=== PATIENT | male | born 1960 | race Caucasian/White ===

== ENCOUNTER 2016-09-13 17:59 | Emergency (ER) | payer OTHER ==
[~2016-09-13] VITALS: Ht 180.3 cm; Wt 104.3 kg
--- NOTE | 2016-09-13 19:04 | ED NECK/BACK PAIN COMPLAINT ---
History of Present Illness General Chief Complaint: Low Back Pain/Injury Stated Complaint: S/P FALL BACK PAIN Source: patient Exam Limitations: no limitations Vital Signs & Intake/Output Vital Signs & Intake/Output Vital Signs Date Time Temp Pulse Resp B/P Pulse O2 O2 Flow FiO2 Ox Delivery Rate 09/13 2113 98.0 60 16 98/65 09/13 1946 Room Air 09/13 1817 98.9 77 20 131/76 97 Room Air Room Air Allergies Coded Allergies: No Known Allergies (09/13/16) Reconcile Medications Azithromycin (Zithromax) 250 MG TABLET 1 DP PO AD PNEUMONIA 2 the first day followed by 1 for days 2-5 Cyclobenzaprine HCl 10 MG TABLET 1 TAB PO TID PRN SPASM Ibuprofen 800 MG TABLET 1 TAB PO TID PRN PAIN Oxycodone HCl/Acetaminophen (Percocet 5-325 MG Tablet) 5 MG-325 MG TABLET 1 TAB PO Q4-6 PRN BREAKTHROUGH PAIN Triage Note: PT TO ED S/P SLIP AND FALL ON ICE IN DRIVEWAY "I WENT DOWN STRAIGHT ONTO MY BACK, THEN GOT UP WENT A FEW STEPS AND FELL AGAIN", PT STATING FALLS HAPPENED YESTERDAY, WAS OK, WENT TO WORK, AND GOT UP OUT OF MY CHAIR AND STARTED TO WALK AND "I FELT LIKE SOMEONE WAS STABBING ME IN THE BACK". Triage Nurses Notes Reviewed? yes Onset: Abrupt Duration: day(s): (1) Timing: multiple episodes today Quality/Severity: severe, dullness Location: T-spine, lumbar spine Radiation: none Context: fall/near fall Loss of Consciousness: no loss of consciousness Associated Symptoms: back pain HPI: This is a 56 year old male who presents to the ER for chief complaint of back pain s/p slip and fall x [address]. Patient reports pain this morning but went to work. When he went to stand up in the afternoon he had severe pain. He took 2 tylenol without relief. Past History Travel History Traveled to [place] past 21 day No Medical History Any Pertinent Medical History? see below for history Neurological: NONE EENT: NONE Cardiovascular: NONE Respiratory: NONE Gastrointestinal: GERD, peptic ulcer disease Hepatic: NONE Renal: NONE Musculoskeletal: NONE Psychiatric: NONE Endocrine: NONE Blood Disorders: NONE Cancer(s): NONE WOOD GLUER/Reproductive: NONE Surgical History Surgical History: non-contributory Psychosocial History What is your primary language Macanese Tobacco Use: Quit >30 days ago ETOH Use: occasional use Illicit Drug Use: PCP Family History Hx Contributory? No Review of Systems Review of Systems Constitutional: Reports: no symptoms. Eyes: Reports: no symptoms. Ears, Nose, Throat, Mouth: Reports: no symptoms. Respiratory: Denies: cough, short of breath. Cardiovascular: Denies: chest pain. Gastrointestinal/Abdominal: Reports: no symptoms. Musculoskeletal: Reports: back pain, muscle pain, muscle stiffness. Denies: neck pain. Skin: Reports: no symptoms. Neurological/Psychological: Denies: confusion, headache, numbness, tingling, weakness. All Other Systems: Reviewed and Negative Physical Exam Physical Exam General Appearance: well developed/nourished, alert, awake, mild distress Head: atraumatic Eyes: Bilateral: PERRL, EOMI. Ears, Nose, Throat, Mouth: hearing grossly normal Neck: normal inspection, supple, full range of motion Respiratory: normal breath sounds Cardiovascular: regular rate/rhythm Peripheral Pulses: 2+ radial (R), 2+ radial (L) Gastrointestinal: soft, non-tender Back: normal inspection, vertebral tenderness (LUMBOSACRAL SPINE), TENDER OVER BILATEARL POSTERIOR LOWER RIBS Extremities: normal range of motion Straight Leg Raising: Right: Negative. Left: Negative. Neurologic/Psych: awake, alert, oriented x 3, normal mood/affect Skin: intact, normal color, warm/dry Progress Differential Diagnosis: herniated disc, myofascial strain, sciatica, spinal cord inj, T/L spine injury Plan of Care: Orders Procedure Date/time Status CT CHEST WO IV CONTRAST 09/13 1908 Active SC morphine, PO valium ordered. (PINO CREWS,RENETTA) Diagnostic Imaging: Viewed by Me: CT Scan. Discussed w/RAD: CT Scan. Comments: PATIENT: JOAQUIN MANUEL PRESENT AGE: 56 PATIENT ACCOUNT NO: [id number] : 56 LOCATION: [facility] ORDERING PHYSICIAN: RENETTA PRINGLE MD SERVICE DATE: 09/13/16 EXAM TYPE: CAT - CT CHEST WO IV CONTRAST EXAMINATION: CT CHEST WITHOUT CONTRAST CLINICAL INFORMATION: Multiple falls COMPARISON: Chest x-ray 04/22/2014 TECHNIQUE: Multidetector volumetric CT imaging of the chest was done. Axial MIP volume rendering provided. Sagittal and coronal reformatted images were obtained. DLP: 395.17 mGy-cm. FINDINGS: LUNGS: Small subtle peripheral patchy infiltrate left lower lobe posterior, coronal image 83. Right lung is clear. Asymmetric elevation of left diaphragm above the right. MEDIASTINUM: The mediastinum is normal. Moderate hiatal hernia. PLEURA: There is no pleural effusion. No pleural mass or thickening. AXILLA: No lymphadenopathy. UPPER ABDOMEN: Unremarkable. OSSEOUS STRUCTURES: No rib fracture. No acute osseous change. There is degenerative spondylosis of the spine with multilevel endplate spurs. Disc height narrowing subchondral cystic changes at endplates of T5-T6. There is a 1.5 cm sclerotic lesion most likely bone island at the posterior right seventh rib. No bone destruction periosteal reaction or soft tissue lesion. IMPRESSION: 1. No rib fracture. No acute osseous of noted. 2. Subtle peripheral patchy infiltrate left lower lobe. DICTATED BY: KINGSTON MITTAL MD DATE/TIME DICTATED:09/13/161958 SLIP LASTER:ALEX DATE/TIME TRANSCRIBED:09/13/161958 CONFIDENTIAL, DO NOT COPY WITHOUT APPROPRIATE AUTHORIZATION. <Electronically signed in Other Vendor System> SIGNED BY: KINGSTON MITTAL MD 09/13/162106 PATIENT: JOAQUIN MANUEL PRESENT AGE: 56 PATIENT ACCOUNT NO: [id number] : 56 LOCATION: [facility] ORDERING PHYSICIAN: RENETTA PRINGLE MD SERVICE DATE: 09/13/16 EXAM TYPE: CAT - CT LUMB SPINE WO IV CONTRAST; CT THOR SPINE WO IV CONTRAST EXAMINATION: CT THORACIC SPINE WITHOUT CONTRAST CT LUMBAR SPINE WITHOUT CONTRAST CLINICAL INFORMATION: Back pain status post multiple falls. COMPARISON: Chest x-ray 04/22/2014. TECHNIQUE: Noncontrast axial CT scan of the thoracic and lumbar spine was obtained. Coronal and sagittal reformatted images were generated at the technologist's workstation. DLP: 1657.37 mGy-cm FINDINGS: CT THORACIC SPINE: Vertebral Bodies and Paraspinal Structures: There is anatomic alignment of the vertebral bodies. There is multilevel narrowing of intervertebral disc height which is most prominent at T5-T6; there are degenerative endplate contour changes with Schmorl's nodes in the adjacent endplates. Milder changes are seen at T10-T11 and T11-T12. There is mild loss of vertebral body height of T4, as well as loss of vertebral body height of the bodies of T8, T9 and T11. These are age indeterminate. There are multilevel marginal osteophytes. The paravertebral structures are unremarkable. There is atheromatous calcification of the aorta. There is a hiatal hernia. The superior retroperitoneal structures are unremarkable. There are linear opacities at the bases bilaterally consistent with atelectasis. There is no focal consolidation or pleural effusion. No pneumothoraces are demonstrated on the available images. There is an area of sclerosis in the right posteromedial 7th rib, most consistent with a bone island. Bone density elsewhere is unremarkable. SPINAL LEVELS: The central canal and neural foramina appear patent. No rib fractures are demonstrated. CT LUMBAR SPINE: Vertebral Bodies and Paraspinal Structures: There is anatomic alignment of the vertebral bodies. Vertebral body heights are maintained. Bone mineralization appears normal. The intervertebral discs have normal height. There are no acute fractures. 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 The facet joints bilaterally at L5-S1 appear slightly dysplastic. There is a retroaortic left renal vein. There are atheromatous calcifications of the aorta. The visualized pelvic structures are unremarkable. There are degenerative changes of the sacroiliac joints bilaterally with sclerosis and mild erosive changes. There are multiple small foci of sclerosis in the sacrum consistent with bone islands. More diffuse density is noted in the body of S1. SPINAL LEVELS: L1-L2: The disc configuration is normal. The central canal and neural foramina are widely patent. The facet joints are normal. L2-L3: The disc configuration is normal. The central canal and neural foramina are widely patent. The facet joints are normal. L3-L4: The disc configuration is normal. The central canal and neural foramina are widely patent. The facet joints are normal. L4-L5: There is mild bilateral facet arthropathy. There is a diffuse disc bulge. The neural foramina are patent and there is no central stenosis. L5-S1: As described above, the facets appear slightly dysplastic. There is no anterolisthesis despite the pars defects. There is a posterior disc protrusion, which is more prominent on the left extending to the left neural foramen. There is no central stenosis. IMPRESSION: THORACIC SPINE: 1. There is loss of vertebral body height at multiple levels, which is age indeterminate but likely chronic. 2. The paravertebral structures appear normal. There is no pneumothorax and there are no pleural effusions. LUMBAR SPINE: 1. 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 2. There are degenerative changes in the bilateral sacroiliac joints, which appear chronic. 3. There are no acute findings in the lumbar spine. DICTATED BY: ASTER MARCUS MD DATE/TIME DICTATED:09/13/161956 SLIP LASTER:ALEX DATE/TIME TRANSCRIBED:09/13/161956 CONFIDENTIAL, DO NOT COPY WITHOUT APPROPRIATE AUTHORIZATION. <Electronically signed in Other Vendor System> SIGNED BY: ASTER MARCUS MD 09/13/162041 Departure Departure Time of Disposition: 2118 Disposition: HOME OR SELF CARE Condition: Stable Clinical Impression Primary Impression: Contusion of lower back Secondary Impressions: Pneumonia Referrals: ELIAS CREWS,Landy CAMPBELL (PCP/Family) Additional Instructions: Take the ibuprofen, Flexeril and Percocet as directed. Take the azithromycin for the pneumonia. Do not drive with the Percocet or Flexeril. Please follow up with her doctor in the office. Return to the ER for any changing or worsening symptoms. Departure Forms: Customer Survey General Discharge Information Prescriptions: Current Visit Scripts Ibuprofen 1 TAB PO TID PRN PAIN #20 TAB Cyclobenzaprine HCl 1 TAB PO TID PRN SPASM #30 TAB Oxycodone HCl/Acetaminophen (Percocet 5-325 MG Tablet) 1 TAB PO Q4-6 PRN BREAKTHROUGH PAIN #12 TAB Azithromycin (Zithromax) 1 DP PO AD #6 TAB 2 the first day followed by 1 for days 2-5
--- NOTE | 2016-09-13 20:42 | CT SCAN REPORT ---
EXAMINATION: CT THORACIC SPINE WITHOUT CONTRAST CT LUMBAR SPINE WITHOUT CONTRAST CLINICAL INFORMATION: Back pain status post multiple falls. COMPARISON: Chest x-ray 04/22/2014. TECHNIQUE: Noncontrast axial CT scan of the thoracic and lumbar spine was obtained. Coronal and sagittal reformatted images were generated at the technologist's workstation. DLP: 1657.37 mGy-cm FINDINGS: CT THORACIC SPINE: Vertebral Bodies and Paraspinal Structures: There is anatomic alignment of the vertebral bodies. There is multilevel narrowing of intervertebral disc height which is most prominent at T5-T6; there are degenerative endplate contour changes with Schmorl's nodes in the adjacent endplates. Milder changes are seen at T10-T11 and T11-T12. There is mild loss of vertebral body height of T4, as well as loss of vertebral body height of the bodies of T8, T9 and T11. These are age indeterminate. There are multilevel marginal osteophytes. The paravertebral structures are unremarkable. There is atheromatous calcification of the aorta. There is a hiatal hernia. The superior retroperitoneal structures are unremarkable. There are linear opacities at the bases bilaterally consistent with atelectasis. There is no focal consolidation or pleural effusion. No pneumothoraces are demonstrated on the available images. There is an area of sclerosis in the right posteromedial 7th rib, most consistent with a bone island. Bone density elsewhere is unremarkable. SPINAL LEVELS: The central canal and neural foramina appear patent. No rib fractures are demonstrated. CT LUMBAR SPINE: Vertebral Bodies and Paraspinal Structures: There is anatomic alignment of the vertebral bodies. Vertebral body heights are maintained. Bone mineralization appears normal. The intervertebral discs have normal height. There are no acute fractures. 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 The facet joints bilaterally at L5-S1 appear slightly dysplastic. There is a retroaortic left renal vein. There are atheromatous calcifications of the aorta. The visualized pelvic structures are unremarkable. There are degenerative changes of the sacroiliac joints bilaterally with sclerosis and mild erosive changes. There are multiple small foci of sclerosis in the sacrum consistent with bone islands. More diffuse density is noted in the body of S1. SPINAL LEVELS: L1-L2: The disc configuration is normal. The central canal and neural foramina are widely patent. The facet joints are normal. L2-L3: The disc configuration is normal. The central canal and neural foramina are widely patent. The facet joints are normal. L3-L4: The disc configuration is normal. The central canal and neural foramina are widely patent. The facet joints are normal. L4-L5: There is mild bilateral facet arthropathy. There is a diffuse disc bulge. The neural foramina are patent and there is no central stenosis. L5-S1: As described above, the facets appear slightly dysplastic. There is no anterolisthesis despite the pars defects. There is a posterior disc protrusion, which is more prominent on the left extending to the left neural foramen. There is no central stenosis. IMPRESSION: THORACIC SPINE: 1. There is loss of vertebral body height at multiple levels, which is age indeterminate but likely chronic. 2. The paravertebral structures appear normal. There is no pneumothorax and there are no pleural effusions. LUMBAR SPINE: 1. 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 2. There are degenerative changes in the bilateral sacroiliac joints, which appear chronic. 3. There are no acute findings in the lumbar spine.
--- NOTE | 2016-09-13 21:07 | CT SCAN REPORT ---
EXAMINATION: CT CHEST WITHOUT CONTRAST CLINICAL INFORMATION: Multiple falls COMPARISON: Chest x-ray 04/22/2014 TECHNIQUE: Multidetector volumetric CT imaging of the chest was done. Axial MIP volume rendering provided. Sagittal and coronal reformatted images were obtained. DLP: 395.17 mGy-cm. FINDINGS: LUNGS: Small subtle peripheral patchy infiltrate left lower lobe posterior, coronal image 83. Right lung is clear. Asymmetric elevation of left diaphragm above the right. MEDIASTINUM: The mediastinum is normal. Moderate hiatal hernia. PLEURA: There is no pleural effusion. No pleural mass or thickening. AXILLA: No lymphadenopathy. UPPER ABDOMEN: Unremarkable. OSSEOUS STRUCTURES: No rib fracture. No acute osseous change. There is degenerative spondylosis of the spine with multilevel endplate spurs. Disc height narrowing subchondral cystic changes at endplates of T5-T6. There is a 1.5 cm sclerotic lesion most likely bone island at the posterior right seventh rib. No bone destruction periosteal reaction or soft tissue lesion. IMPRESSION: 1. No rib fracture. No acute osseous of noted. 2. Subtle peripheral patchy infiltrate left lower lobe.
[2016-09-13 21:14] VITALS: BP 98/65
[2016-09-13] MEDS ORDERED: ZITHROMAX250 M2 PO (21:21)
[2016-09-13] MEDS ORDERED: PERCOCET 5-3251 EACH PO (21:21)
[2016-09-13] MEDS ORDERED: CYCLOBENZAPRINE10 M1 PO (21:21)
[2016-09-13] MEDS ORDERED: IBUPROFEN800 M1 PO (21:21)
== END 2016-09-13 21:30 ==
LOC: ERH 17:59
DX: S30.0XXA Contusion of lower back and pelvis, initial encounter (principal); J18.9 Pneumonia, unspecified organism; Z87.891 Personal history of nicotine dependence; W00.0XXA Fall on same level due to ice and snow, initial encounter; Y92.014 Private driveway to single-family (private) house as the place of occurrence of the external cause
CPT/HCPCS: 96372; J3360